=== PATIENT | male | born 1955 | race Caucasian/White ===

== ENCOUNTER 2018-10-10 11:14 | Emergency (ER) | payer SELFPAY ==
[2018-10-10] MEDS: ONDANSETRON (ODT) 4 MG TAB ODT (12:52)
[2018-10-10] MEDS: HYDROCODONE/APAP (5/325) TAB PO (12:53)
== END 2018-10-10 14:35 | disposition home or self-care (01) ==
LOC: FTE 14:35
DX: M19.90 Unspecified osteoarthritis, unspecified site (principal)
CPT/HCPCS: 73562; 73562-50; 99284-25